=== PATIENT | male | born 1995 | race Caucasian/White ===

== ENCOUNTER 2023-04-23 10:28 | Emergency (ER) | payer OTHER ==
[2023-04-23] MEDS ORDERED: Ketorolac 30 MG/ML SDV IM ONE (12:21)
[2023-04-23] MEDS ORDERED: Orphenadrine 60 MG/2 ML Inj IM ONE (12:21)
== END 2023-04-23 12:50 | disposition home or self-care (01) ==
LOC: VM.ED 10:28
DX: S16.1XXA Strain of muscle, fascia and tendon at neck level, initial encounter (principal); S06.0XAA Concussion with loss of consciousness status unknown, initial encounter; W18.00XA Striking against unspecified object with subsequent fall, initial encounter
CPT/HCPCS: 70450; 72125; 96372; 99283; 99284; J1885; J2360

== ENCOUNTER 2023-10-17 05:50 | Emergency (ER) | payer SELFPAY ==
[2023-10-17] MEDS: chlordiazePOXIDE 25 MG Cap PO ONE (06:23)
[2023-10-17] MEDS: Alum Hydrox/Mag Hydrox/Simeth 30 ML, Lidocaine 2% 15 ML PO ONE (06:25)
[2023-10-17] MEDS ORDERED: chlordiazePOXIDE 25 MG Cap ONE (06:25)
[2023-10-17] MEDS: hydrOXYzine HCl 25 MG Tab PO ONE (06:25)
== END 2023-10-17 06:52 | disposition home or self-care (01) ==
LOC: VM.ED 05:50
DX: F41.9 Anxiety disorder, unspecified (principal); K27.9 Peptic ulcer, site unspecified, unspecified as acute or chronic, without hemorrhage or perforation; F10.130 Alcohol abuse with withdrawal, uncomplicated; Z79.899 Other long term (current) drug therapy
CPT/HCPCS: 99284; A9270

== ENCOUNTER 2024-05-14 11:18 | Day surgery (SDC) | payer OTHER ==
[~2024-05-14 11:18] MED LIST: Lactated Ringers 1,000 ML IV SCH
[2024-05-14] MEDS: Lactated Ringers 1,000 ML IV SCH (11:32)
[2024-05-14] MEDS ORDERED: Propofol 200 MG/20 ML SDV ONE ×4 (11:45→12:57)
[2024-05-14] MEDS ORDERED: fentaNYL 100 MCG/2 ML SDV ONE (11:45)
[2024-05-14] MEDS: Ondansetron 4 MG/2 ML SDV IV PRN (11:54)
[2024-05-14] MEDS ORDERED: Midazolam 1 MG/ML 2 ML SDV ONE ×5 (12:12→12:30)
== END 2024-05-14 14:57 | disposition home or self-care (01) ==
LOC: VM.SDS 11:18
PROVIDERS: ATTEND Family Medicine
DX: K62.1 Rectal polyp (principal); K31.89 Other diseases of stomach and duodenum
CPT/HCPCS: J2250; J2405; J2704; J3010; J7120

== ENCOUNTER 2024-07-15 17:16 | Emergency (ER) | payer OTHER ==
[2024-07-15] MEDS: Lactated Ringers 1,000 ML IV ONE (17:26)
[2024-07-15] MEDS ORDERED: Sodium Chloride 0.9% 10 ML Syringe FLUSH PRN (17:27)
[2024-07-15] MEDS: Ondansetron 4 MG/2 ML SDV IVPUSH ONE ×2 (17:27→19:01)
[2024-07-15 17:40] LABS: BASOPHILS PERCENT AUTO 0.1 % (0.2-1.2); EOSINOPHILS PERCENT AUTO 0.2 % (0.0-4.0); HEMATOCRIT 44.4 % (40.0-52.0); HEMOGLOBIN 15.2 g/dL (14.0-18.0); IMMATURE GRAN ABSOLUTE AUTO 0.02 x10^3/uL (0.00-0.07); LYMPHOCYTES ABSOLUTE AUTO 0.8 x10^3/uL (1.0-4.8); LYMPHOCYTES PERCENT AUTO 5.4 % (25.0-50.0); MEAN CORPUSCULAR HGB CONC 34.2 g/dL (32.0-36.0); MEAN CORPUSCULAR VOLUME 96.5 fL (78.0-93.0); MONOCYTES ABSOLUTE AUTO 0.9 x10^3/uL (0.0-0.8); MONOCYTES PERCENT AUTO 6.1 % (2.0-11.0); NEUTROPHILS ABSOLUTE AUTO 13.3 x10^3/uL (1.8-7.7); NEUTROPHILS PERCENT AUTO 88.1 % (50.0-80.0); PLATELET COUNT,PLT 180 x10^3/uL (130-400); WHITE BLOOD CELL COUNT,WBC 15.1 x10^3/uL (4.0-10.0)
[2024-07-15 17:55] LABS: A/G RATIO 1.42; ALANINE AMINOTRANSFERASE,ALT 256 U/L (16-63); ALBUMIN 4.7 g/dL (3.4-5.0); ALKALINE PHOSPHATASE 98 U/L (46-116); ASPARTATE AMNIOTRANSFERASE,AST 270 U/L (15-37); BILIRUBIN TOTAL 2.1 mg/dL (0.2-1.0); BLOOD UREA NITROGEN,BUN 10 mg/dL (7-18); CALCIUM 9.2 mg/dL (8.5-10.1); CARBON DIOXIDE,CO2 25 mmol/L (21-32); CHLORIDE,CL 100 mmol/L (98-107); CREATININE 0.8 mg/dL (0.70-1.30); GLUCOSE RANDOM 115 mg/dL (70-99); LIPASE 49 U/L (19-71); POTASSIUM,K 3.6 mmol/L (3.5-5.1); SODIUM,NA 141 mmol/L (136-145)
[2024-07-15 17:56] LABS: ANION GAP 19.6 mmol/L (5-15); C-REACTIVE PROTEIN < 0.50 mg/dL (<=0.50); ESTIMATED GFR 121 mL/min (>=60)
[2024-07-15] MEDS: LORazepam 2 MG/ML SDV IVPUSH ONE (19:04)
[2024-07-15] MEDS: Iopamidol 612 MG/ML 100 ML Bottle IVPUSH ONE (19:28)
[2024-07-15] MEDS: Prochlorperazine 10 MG/2 ML SDV IV ONE (20:32)
[2024-07-15] MEDS: Ketorolac 30 MG/ML SDV IVPUSH ONE (20:34)
[2024-07-15] MEDS: Take Home: Ondansetron 4 MG Tab.DIS, 5 Tab Pack PO ONE (21:16)
[2024-07-15] MEDS: Take Home: Promethazine 25 MG, 4 Tab Pack PO ONE (21:16)
== END 2024-07-15 21:27 | disposition home or self-care (01) ==
LOC: VM.ED 17:16
DX: K52.9 Noninfective gastroenteritis and colitis, unspecified (principal); F10.10 Alcohol abuse, uncomplicated; R16.0 Hepatomegaly, not elsewhere classified; Z79.899 Other long term (current) drug therapy
CPT/HCPCS: 74177; 80053; 83690; 85025; 86140; 87428-QW; 96361; 96374; 96375; 96376; 99284; 99284-25; A9270-GY; J0780; J1885; J2060; J2405; J7120; Q0162; Q9967

== ENCOUNTER 2025-01-17 13:33 | Emergency (ER) | payer SELFPAY | END 2025-01-17 14:42 | disposition home or self-care (01) | LOC: SUPCPDRO 13:33 → VM.ED 13:33 | DX: S83.92XA Sprain of unspecified site of left knee, initial encounter (principal); Z79.899 Other long term (current) drug therapy; W19.XXXA Unspecified fall, initial encounter; Y92.830 Public park as the place of occurrence of the external cause | CPT/HCPCS: 73562-LT; 99283 ==

== ENCOUNTER 2025-01-21 16:01 | Emergency (ER) | payer SELFPAY | END 2025-01-21 17:00 | disposition home or self-care (01) | LOC: VM.ED 16:01 | DX: S50.01XA Contusion of right elbow, initial encounter (principal); L03.113 Cellulitis of right upper limb; Z79.899 Other long term (current) drug therapy; V00.131A Fall from skateboard, initial encounter; Y93.89 Activity, other specified | CPT/HCPCS: 73080-RT; 99283 ==

== ENCOUNTER 2025-03-13 16:12 | Emergency (ER) | payer SELFPAY ==
[2025-03-13 16:46] LABS: BASOPHILS ABSOLUTE AUTO 0.0 x10^3/uL (0.0-0.2); BASOPHILS PERCENT AUTO 0.2 % (0.2-1.2); EOSINOPHILS ABSOLUTE AUTO 0.0 x10^3/uL (0.0-0.5); EOSINOPHILS PERCENT AUTO 0.3 % (0.0-4.0); IMMATURE GRAN ABSOLUTE AUTO 0.02 x10^3/uL (0.00-0.07); IMMATURE GRAN PERCENT AUTO 0.20 % (0.00-0.43); LYMPHOCYTES ABSOLUTE AUTO 1.9 x10^3/uL (1.0-4.8); LYMPHOCYTES PERCENT AUTO 21.5 % (25.0-50.0); MONOCYTES ABSOLUTE AUTO 0.8 x10^3/uL (0.0-0.8); MONOCYTES PERCENT AUTO 9.2 % (2.0-11.0); NEUTROPHILS ABSOLUTE AUTO 6.0 x10^3/uL (1.8-7.7); NEUTROPHILS PERCENT AUTO 68.6 % (50.0-80.0); PLATELET COUNT,PLT 182 x10^3/uL (130-400); RED BLOOD CELL COUNT 4.79 x10^6/uL (4.5-6.0); WHITE BLOOD CELL COUNT,WBC 8.8 x10^3/uL (4.0-10.0)
[2025-03-13 17:01] LABS: AMPHETAMINES SCREEN, URINE NEGATIVE (NEGATIVE); COCAINE METABOLITES,URINE NEGATIVE (NEGATIVE); METHADONE SCREEN, URINE NEGATIVE (NEGATIVE); METHAMPHETAMINE SCREEN, URINE NEGATIVE (NEGATIVE); OXYCODONE SCREEN,URINE NEGATIVE (NEGATIVE); PCP SCREEN,URINE NEGATIVE (NEGATIVE)
[2025-03-13 17:06] LABS: THC SCREEN,URINE 50 NG/ML POSITIVE (NEGATIVE)
[2025-03-13 17:07] LABS: BUPRENORPHINE SCREEN,URINE NEGATIVE (NEGATIVE)
[2025-03-13 17:08] LABS: A/G RATIO 1.71; ALANINE AMINOTRANSFERASE,ALT 352 U/L (16-63); ASPARTATE AMNIOTRANSFERASE,AST 434 U/L (15-37); BILIRUBIN TOTAL 2.3 mg/dL (0.2-1.0); BLOOD UREA NITROGEN,BUN 6 mg/dL (7-18); CARBON DIOXIDE,CO2 26 mmol/L (21-32); CHLORIDE,CL 96 mmol/L (98-107); CREATININE 1.0 mg/dL (0.70-1.30); GLUCOSE RANDOM 106 mg/dL (70-99); POTASSIUM,K 3.7 mmol/L (3.5-5.1); PROTEIN TOTAL,TP 8.4 g/dL (6.4-8.2); SODIUM,NA 140 mmol/L (136-145)
[2025-03-13 17:09] LABS: ESTIMATED GFR 103 mL/min (>=60)
== END 2025-03-13 17:30 | disposition home or self-care (01) ==
LOC: VM.ED 16:12
DX: T40.711A Poisoning by cannabis, accidental (unintentional), initial encounter (principal)
CPT/HCPCS: 36415; 80053; 80305-QW; 84484; 85025; 99284; 99285